=== PATIENT | female | born 1995 | race Two or more races ===

== ENCOUNTER 2024-04-24 23:51 | Emergency (ER) | payer OTHER, SELFPAY ==
[2024-04-24 23:52] VITALS: BMI 36.6
[2024-04-25 00:01] VITALS: BP 135/88; PULSE 70; RESP 19; TEMP 36.9; O2SAT 98
--- NOTE | 2024-04-25 00:07 | XR_ITS ---
Examination: PA lateral chest 2 views Technique: Upright PA lateral chest 2 views Exam date and time: April 25, 2024 at 0014 hrs. Indications: Coughing beginning one week ago Findings: Normal heart size Lungs are clear The osseous structures are intact Impression: No active disease
--- NOTE | 2024-04-25 00:07 | EDNOTE_ITS ---
Upper Respiratory Inf. RME/HPI General Chief Complaint: Flu Like Symptoms Stated Complaint: COUGH, CHEST PRESSURE Time Seen by Provider: 04/25/24 00:06 Source: patient Arrival date/time: 04/24/24 23:51 29-year-old female presents emergency department complaining of dry cough and nasal congestion that has been ongoing for several days. Patient denies any chills, fever, diarrhea, nausea vomiting, or any other associated symptom. Mode of arrival: ambulatory Limitations: no limitations Related Data Previous Rx's ?Medication ?Instructions ?Recorded albuterol sulfate 90 mcg/actuation 2 puff inhalation Q6H PRN 04/25/24 aerosol inhaler (Ventolin HFA) shortness of breath or wheezing #6.7 grams prednisone 20 mg tablet 20 mg PO BID 3 days #6 tabs 04/25/24 Allergies Allergy/AdvReac Type Severity Reaction Status Date / Time No Known Allergies Allergy Verified 04/24/24 23:52 Review of Systems Review of Systems Systems Reviewed: All systems reviewed, normal except as documented Constitutional Constitutional: Reports system reviewed and no additional complaints, except as documented, Denies body ache(s), Denies chills and Denies fever(s) Eyes Eyes: Reports system reviewed and no additional complaints, except as documented and Denies change in vision ENT Ears, Nose, Mouth, and Throat: Reports system reviewed and no additional complaints, except as documented, Denies disequilibrium, Denies dizziness, Reports nasal congestion, Denies sore throat and Denies vertigo Cardiovascular Cardiovascular: Reports system reviewed and no additional complaints, except as documented, Denies chest pain and Reports dyspnea Respiratory Respiratory: Reports system reviewed and no additional complaints, except as documented, Reports chest congestion, Reports cough and Reports dyspnea Gastrointestinal Gastrointestinal: Reports system reviewed and no additional complaints, except as documented, Denies abdominal pain, Denies nausea and Denies vomiting Musculoskeletal Musculoskeletal: Reports system reviewed and no additional complaints, except as documented, Denies abnormal gait and Denies arthralgias Integumentary/Breasts Skin/Breast: Reports system reviewed and no additional complaints, except as documented, Denies erythema, Denies rash and Denies wounds Neurologic Neurologic: Reports system reviewed and no additional complaints, except as documented, Denies abnormal gait, Denies disequilibrium, Denies dizziness and Denies vertigo Past Medical History Social History SMOKING STATUS: Never smoker ED Exam General Limitations: Present no limitations General appearance: Present alert and in no apparent distress Head Head exam: Present atraumatic Eye Eye exam: Present normal appearance, PERRL and EOMI ENT ENT exam: Present normal exam, normal oropharynx and mucous membranes moist Neck Neck exam: Present normal inspection, full ROM and trachea midline Chest Chest inspection: Present normal inspection and symmetric chest wall rise Respiratory Respiratory exam: Present normal lung sounds bilaterally Cardiovascular Cardiovascular exam: Present regular rate, normal rhythm and normal heart sounds Abdominal Exam Abdominal exam: Present soft and normal bowel sounds Extremities Exam Extremities exam: Present normal inspection and full ROM Back Exam Back exam: Present normal inspection and full ROM Neurological Exam Neurological exam: Present alert, oriented X3 and CN II-XII intact Psychiatric Psychiatric exam: Present normal affect and normal mood Skin Skin exam: Present warm, dry, intact and normal color Course Quality Measures none Orders Category Date Time Status Bedside COVID-19 Antigen Test NOW Care 04/25/24 00:07 Completed Bedside Influenza A&B Antigen Test NOW Care 04/25/24 00:07 Completed XR chest 2V Stat Exams 04/25/24 00:07 Taken Vital Signs Vital signs: Vital Signs Temperature 98.4 F 04/25/24 00:01 Pulse Rate 70 04/25/24 00:01 Respiratory Rate 19 04/25/24 00:01 Blood Pressure 135/88 H 04/25/24 00:01 Pulse Oximetry (%) 98 04/25/24 00:01 Oxygen Delivery Method Room Air 04/25/24 00:01 98% room air within normal limits Upper Respiratory Infection MDM Narrative MDM Narrative:: 29-year-old female presents emergency department complaining of dry cough and nasal congestion that has been ongoing for several days. Patient denies any chills, fever, diarrhea, nausea vomiting, or any other associated symptom. Patient appears nontoxic and hemodynamically stable. Patient 98% on room air. Influenza and COVID negative. Chest x-ray was negative for any acute process based on my interpretation. No adventitious lung sounds on auscultation. Patient does have dry cough that is nonproductive. Patient given inhaler and discharged home on oral steroids. Instructed to follow-up with primary care provider 24 to 48 hours and return to emergency department for any worsening symptoms or as needed. Patient data External records reviewed:: [facility] previous records Clinical information provided by:: patient Social determinants that could affect healthcare access:: none Patient has the following chronic illnesses:: None How is presenting disease/condition affected by chronic disease/condition?: no chronic disease Evaluation data The following diagnostics were reviewed and interpreted by me:: lab results and radiology exam(s) Lab and/or radiology exams considered but not ordered:: Ordered Interpretation Summary: Interpreted by me Medications / Prescriptions Medications or Prescriptions considered but not ordered:: Prescribed Medication administrations:: N/A Consultations Consultation(s) initiated? (list below): No Diagnosis Upper Respiratory Differential Diagnosis: upper respiratory infection, sinusitis, viral infection, bronchitis and influenza Most likely diagnosis given after review of the tests above:: Viral infection Admission Indicated Admission indicated?: not indicated Admission Request Was there a request for admission?: No Disposition Plan Disposition Plan: Discharge Discharge Attestation Discharge Attestation: The patient and all family members were given an opportunity to ask questions and understood the discharge instructions. Discharge instructions specifically effects, indications for sooner follow up or return to the emergency department, and the expected course of current diagnosis. Patient condition: Stable Discharge Plan Plan Patient Disposition: HOME (Self Care) Disposition Comment: Stable Prescriptions/Referrals Prescriptions/Med Rec: New albuterol sulfate [Ventolin HFA] 90 mcg/actuation HFA aerosol inhaler 2 puff inhalation Q6H PRN (Reason: shortness of breath or wheezing) Qty: 6.7 0RF prednisone 20 mg tablet 20 mg PO BID 3 Days Qty: 6 0RF Taper: Prednisone Taper 20 mg DAILY for 2 Days and 0 Hour 10 mg DAILY for 2 Days and 0 Hour 5 mg DAILY for 7 Days and 0 Hour Problem List Clinical Impression: Viral infection Patient/Caregiver Discharge Instructions Discharge Activity: activity as tolerated Education Materials: ED Viral Syndrome (Adult) Additional Instructions: Take medication as prescribed. Use albuterol inhaler as needed. Follow-up with primary care provider in 24 to 40 hours. Return to the emergency department for any worsening symptoms or as needed. Print Language: Uzbek Stand Alone Forms: [employer] Info., Patient Portal Info Letter PA/REPRINT SORTER Supervising Physician PA/REPRINT SORTER Supervising Physician: Dr. Bradley
== END 2024-04-25 01:16 | disposition home or self-care (01) ==
LOC: SERX 04-25 02:54
PROVIDERS: Emergency Provider Emergency Medicine
DX: B34.9 Viral infection, unspecified (principal)
CPT/HCPCS: 71046; 87400; 87811; 99283

== ENCOUNTER 2024-04-26 17:17 | Emergency (ER) | payer OTHER, SELFPAY ==
[2024-04-26 17:48] VITALS: BP 124/87; PULSE 66; RESP 18; TEMP 37; O2SAT 98; BMI 36.8
--- NOTE | 2024-04-26 18:02 | PD.EDRME ---
Rapid Medical Screening Exam RME Arrival date/time: 04/26/24 1800 29-year-old female presents emergency department complaints of nausea vomiting worsening with her cough. Has had a cough for over a week. States coughed blood. I have greeted and performed a focused initial assessment of this patient. Initial appropriate labs ordered at this time. A comprehensive ED assessment and evaluation of the patient and analysis of all test and completion of medical decision making process will be conducted by additional ED provider. Chief Complaint: Nausea/Vomiting/Diarrhea Time Seen by Provider: 04/26/24 17:54 Vital signs: Vital Signs Temperature 98.6 F 04/26/24 17:48 Pulse Rate 66 04/26/24 17:48 Respiratory Rate 18 04/26/24 17:48 Blood Pressure 124/87 H 04/26/24 17:48 Pulse Oximetry (%) 98 04/26/24 17:48 Oxygen Delivery Method Room Air 04/26/24 17:48
[2024-04-26 18:53] LABS: Basophils % (Auto) 0 % (0-2.5); Eosinophils % (Auto) 0 % (0-10); Hematocrit 42.7 % (36.0-46.0); Hemoglobin 14.2 g/dL (12.0-16.0); Immature Granulocytes % (Auto) 0 % (0-0); Immature Granulocytes Auto 0.02 Thou/mm3 (0.00-0.00); Lymphocytes # (Auto) 2.3 Thou/mm3 (1.0-4.8); Lymphocytes % (Auto) 23 % (10-50); Mean Corpuscular HGB Conc 33.3 g/dl (31.0-37.0); Mean Corpuscular Hemoglobin 30.8 pg (25.0-35.0); Mean Corpuscular Volume 93 fL (80-100); Monocytes # (Auto) 0.4 Thou/mm3 (0.0-0.8); Monocytes % (Auto) 4 % (0-12); Neutrophils # (Auto) 7.4 Thou/mm3 (1.8-7.7); Neutrophils % (Auto) 73 % (37-80); Nucleated Red Blood Cell % 0 /100 WBC (0); Platelet Count 279 Thou/mm3 (140-440); RDW Standard Deviation 40.6 fL (36.4-46.3); Red Blood Count 4.61 Miln/mm3 (4.00-5.20); White Blood Count 10.1 Thou/mm3 (3.6-11.0)
[2024-04-26 19:00] LABS: HCG,Qualitative Serum Negative
[2024-04-26 19:09] LABS: Alanine Aminotransferase 47 U/L (10-49); Albumin, Serum 4.6 gm/dL (3.5-5.0); Albumin/Globulin Ratio 1.4 (1.2-2.2); Alkaline Phosphatase 82 U/L (46-116); Anion Gap 5 (7-16); Aspartate Amino Transferase 24 U/L (0-34); BUN/Creatinine Ratio 8 Ratio (12-20); Bilirubin,Total 0.5 mg/dL (0.3-1.2); Blood Urea Nitrogen 7 mg/dL (9-23); Calcium 9.7 mg/dL (8.3-10.6); Calcium (Corrected) 9.7 mg/dL (8.5-10.1); Carbon Dioxide 25.5 mMol/L (20.0-31.0); Chloride 106 mMol/L (98-107); Creatinine (Component) 0.9 mg/dL (0.6-1.3); Estimated Creatinine Clearance 110.3 mL/min (>60); Globulin 3.2 gm/dL (2.3-3.5); Glucose 107 mg/dL (74-106); Lipase 30 U/L (12-53); Osmolality,Calculated 269 (275-295); Potassium 4.5 mMol/L (3.4-5.1); Sodium 136 mMol/L (136-145); Total Protein 7.8 gm/dL (5.7-8.2); eGFR > 60 See Note
[2024-04-26] MEDS: ONDANSETRON ODT 4 MG TABRAP PO (19:18)
[2024-04-26] MEDS: PROMETHAZINE/DM SYRUP 5 ML DOSE PO (19:21)
--- NOTE | 2024-04-26 19:45 | EDNOTE_ITS ---
Nausea/Vomit./Diarrhea-RME/HPI General Chief complaint: Nausea/Vomiting/Diarrhea Stated complaint: N/V/D x 5 days Time Seen by Provider: 04/26/24 17:54 Source: patient Arrival date/time: 04/26/24 17:17 Mode of arrival: ambulatory Limitations: no limitations RME / HPI RME / HPI Narrative: 04/26/24 1800 29-year-old female presents emergency department complaints of nausea vomiting worsening with her cough. Has had a cough for over a week. States coughed blood. I have greeted and performed a focused initial assessment of this patient. Initial appropriate labs ordered at this time. A comprehensive ED assessment and evaluation of the patient and analysis of all test and completion of medical decision making process will be conducted by additional ED provider. --- DR. HARVEY MAIN ED EVALUATION: 29-year-old female who presents to the emergency department for a chief complaint of nausea and vomiting. Patient states she's had a cough for the last 5 days, reporting it's been getting worse. She states she started having nausea and vomiting today, as well as coughing up blood, so she came in for evaluation. Denies any other associated symptoms. No known allergies. Related Data Previous Rx's ?Medication ?Instructions ?Recorded albuterol sulfate 90 mcg/actuation 2 puff inhalation Q6H PRN 04/25/24 aerosol inhaler (Ventolin HFA) shortness of breath or wheezing #6.7 grams prednisone 20 mg tablet 20 mg PO BID 3 days #6 tabs 04/25/24 promethazine-DM 6.25 mg-15 mg/5 mL 5 ml PO Q6H PRN cough #118 mL 04/26/24 oral syrup Allergies Allergy/AdvReac Type Severity Reaction Status Date / Time No Known Allergies Allergy Verified 04/24/24 23:52 Review of Systems Review of Systems Systems Reviewed: All systems reviewed, normal except as documented Past Medical History Social History SMOKING STATUS: Never smoker ED Exam General Limitations: Present no limitations General appearance: Present alert and in no apparent distress Head Head exam: Present atraumatic, normocephalic and normal inspection Eye Eye exam: Present normal appearance, PERRL and EOMI ENT ENT exam: Present normal exam, normal oropharynx, TM's normal bilaterally and normal external ear exam Neck Neck exam: Present normal inspection and full ROM Chest Chest inspection: Present normal inspection and symmetric chest wall rise Respiratory Respiratory exam: Present normal lung sounds bilaterally Cardiovascular Cardiovascular exam: Present regular rate, normal rhythm and normal heart sounds Abdominal Exam Abdominal exam: Present normal bowel sounds Extremities Exam Extremities exam: Present normal inspection and full ROM Back Exam Back exam: Present normal inspection and full ROM Neurological Exam Neurological exam: Present alert, oriented X3 and CN II-XII intact Psychiatric Psychiatric exam: Present normal affect and normal mood; Absent depressed Skin Skin exam: Present warm, dry, intact and normal color Course Quality Measures none Orders Category Date Time Status CBC Stat Lab 04/26/24 18:32 Completed CMP [Comprehensive Metabolic Panel] Stat Lab 04/26/24 18:32 Completed Cocci Serology IgM with reflex to IgG [Cocci Serology, Lab 04/26/24 18:32 Received Unk History] Stat HCG,Qualitative Serum Stat Lab 04/26/24 18:32 Completed Lipase Stat Lab 04/26/24 18:32 Completed Benzonatate [Tessalon] Med 04/26/24 22:38 Discontinued 200 mg PO X1 ONE HYDROcodone*/APAP 5/325 [[place] 5/325] Med 04/26/24 22:34 Discontinued 1 tab PO X1 ONE Ondansetron Odt [Zofran Odt] Med 04/26/24 18:01 Discontinued 4 mg PO X1 ONE Promethazine/Dextromethorph [Phenergan Dm Syrup] Med 04/26/24 18:01 Discontinued 5 ml PO X1 ONE Vital Signs Vital signs: Vital Signs Temperature 98.6 F 04/26/24 17:48 Pulse Rate 66 04/26/24 17:48 Respiratory Rate 18 04/26/24 17:48 Blood Pressure 124/87 H 04/26/24 17:48 Pulse Oximetry (%) 98 04/26/24 17:48 Oxygen Delivery Method Room Air 04/26/24 17:48 Nausea/Vomiting/Diarrhea MDM Narrative MDM Narrative:: Differential diagnoses include ? Scribe Attestation: I, Tye Mejia, am scribing for and in the presence of Dr. Catherine. Provider Notation: Although this document has been carefully reviewed, there may still be some phonetic and other typographical errors. These errors are purely grammatical due to imperfections in the software program and should not be construed in any way to compromise the substance of the patient's medical care during this visit. Patient data External records reviewed:: [facility] previous records Clinical information provided by:: patient Social determinants that could affect healthcare access:: none Patient has the following chronic illnesses:: None How is presenting disease/condition affected by chronic disease/condition?: no chronic disease Evaluation data The following diagnostics were reviewed and interpreted by me:: lab results Lab and/or radiology exams considered but not ordered:: None Interpretation Summary: See narrative Medications / Prescriptions Medications / Prescriptions considered but not ordered:: None Medication administrations:: Medication Administration History Discontinued Medications Hydrocodone Bitart/Acetaminophen (Hydrocodone/Apap 5/325 Tablet) 1 tab PO X1 ONE Stop: 04/26/24 22:35 Last Admin: 04/26/24 23:05 Dose: 1 tab Documented By: HENRIQUE Benzonatate (Benzonatate 100 Mg Capsule) 200 mg PO X1 ONE; Protocol Stop: 04/26/24 22:39 Last Admin: 04/26/24 23:08 Dose: 200 mg Documented By: HENRIQUE Ondansetron HCl (Ondansetron Odt 4 Mg Tabrap) 4 mg PO X1 ONE; Protocol Stop: 04/26/24 18:02 Last Admin: 04/26/24 19:18 Dose: 4 mg Documented By: ÁNGELA Promethazine HCl/Dextromethorphan (Promethazine/Dm Syrup 5 Ml Dose) 5 ml PO X1 ONE; Protocol Stop: 04/26/24 18:02 Last Admin: 04/26/24 19:21 Dose: 5 ml Documented By: ÁNGELA As above, if any Consultations Consultation(s) initiated? (list below): No Diagnosis Nausea Differential Diagnosis: dehydration and other (URI, Influenza, COVID, electrolyte abnormality, pneumonia) Most likely diagnosis given after review of the tests above:: see below Admission Indicated Admission indicated?: not indicated Admission Request Was there a request for admission?: No Disposition Plan Disposition Plan: Discharge Discharge Attestation Discharge Attestation: The patient and all family members were given an opportunity to ask questions and understood the discharge instructions. Discharge instructions specifically effects, indications for sooner follow up or return to the emergency department, and the expected course of current diagnosis. Patient condition: Stable Discharge Plan Plan Patient Disposition: HOME (Self Care) Patient condition on transfer: Stable Prescriptions/Referrals Prescriptions/Med Rec: New promethazine-DM 6.25-15 mg/5 mL syrup 5 ml PO Q6H PRN (Reason: cough) Qty: 118 0RF No Action albuterol sulfate [Ventolin HFA] 90 mcg/actuation HFA aerosol inhaler 2 puff inhalation Q6H PRN (Reason: shortness of breath or wheezing) Qty: 6.7 0RF prednisone 20 mg tablet 20 mg PO BID 3 Days Qty: 6 0RF Taper: Prednisone Taper 20 mg DAILY for 2 Days and 0 Hour 10 mg DAILY for 2 Days and 0 Hour 5 mg DAILY for 7 Days and 0 Hour Referrals: No Primary/Family,Physician [Primary Care Provider] - In 1 week Problem List Clinical Impression: Cough Patient/Caregiver Discharge Instructions Education Materials: ED Cough Chronic Uncertain Cause Adult Additional Instructions: Continue all your medications as your doctor prescribed. You can take the cough medicine before bed and 6 hours before going to work. Return to emergency room for worsening symptoms or any other concerns. Print Language: Turkish Stand Alone Forms: [employer] Info., Patient Portal Info Letter
[2024-04-26 19:46] VITALS: BP 115/75; PULSE 64; RESP 19; TEMP 37.1; O2SAT 97
[2024-04-26 22:52] VITALS: BP 116/77; PULSE 52; RESP 17; TEMP 36.9; O2SAT 98
[2024-04-26] MEDS: HYDROcodone/APAP 5/325 TABLET 1 TAB PO (23:05)
[2024-04-26] MEDS: BENZONATATE 100 MG CAPSULE 200 MG PO (23:08)
[2024-04-27 13:44] LABS: Cocci Serology, IgM Negative (Negative)
[2024-04-30 12:34] LABS: Cocci Serology, IgG Negative (Negative)
== END 2024-04-26 23:15 | disposition home or self-care (01) ==
PROVIDERS: Nurse Practitioner Primary Care; Emergency Provider Emergency Medicine
DX: R05.9 Cough, unspecified (principal)
CPT/HCPCS: 36415; 80053; 83690; 84703; 85025; 86331; 86635; 99283; Q0162; A9270

== ENCOUNTER 2025-03-21 13:30 | Emergency (ER) | payer OTHER, SELFPAY ==
--- NOTE | 2025-03-21 | XR_ITS ---
Exam: MRI knee without contrast, left Date and time of exam: March 21, 2025, 1509 hours INDICATIONS: Patient fell today with injury to the knee, patient felt a pop in the knee followed by pain and swelling unable to bear weight Technique: Multiple axial, coronal, and sagittal sections on the knee have been obtained. T2-Weighted sagittal, fat-suppressed images, TR 3,500, TE 62, T2 weighted coronal fat-saturated images, TR 3,500, TE 62 Proton density sagittal sections, TR 1800, TE 31. T-1 weighted coronal images, TR 524, TE 13.0 Findings: Medial meniscus anterior horn intact. Medial meniscus, body large vertical tear. Posterior horn medial meniscus very large vertical tear communicating superior-inferior articular surfaces. Lateral meniscus anterior horn is intact Lateral meniscus, body is intact Posterior horn lateral meniscus is intact Anterior cruciate ligament complete tear Posterior cruciate ligament appears intact. Knee effusion is large. Increased signal in the patellar tendon at its tibial insertion Diffuse increased signal in the quadriceps tendon. There is no evidence of tendinosis. Inflammatory change or fracture of Hoffa's fat pad is not seen. Medial patellar facet demonstrates mild thinning. Lateral patellar facet cartilage demonstrates mild thinning. Trochlear cartilage demonstrates mild thinning. Marrow signal adequate. Medial collateral ligament appears intact. Meniscocapsular separation body and posterior horn medial meniscus Illiotibial band and fibular collateral ligament are intact. Biceps femoris tendons appear intact. Medial femoral condylar articular cartilage demonstrates mild thinning. Lateral femoral condylar articular cartilage demonstrates mild thinning. Tibial plateau cartilage demonstrates mild thinning. Impression: Large tears of the body and posterior horn medial meniscus Meniscocapsular separation posterior horn medial meniscus Complete tear anterior cruciate ligament Moderate strain quadriceps tendon and patellar tendon at its tibial insertion
[2025-03-21 13:31] VITALS: BMI 35.7
[2025-03-21 13:58] VITALS: BP 106/66; PULSE 81; RESP 16; TEMP 36.8; O2SAT 98
[2025-03-21] MEDS: HYDROcodone/APAP 5/325 TABLET 1 TAB PO (14:33)
--- NOTE | 2025-03-21 16:35 | EDNOTE_ITS ---
Lower Extremity Injury RME/HPI General Chief Complaint: Extremity Injury, Lower Stated Complaint: LEFT KNEE SP FALL, NEEDS MRI Time Seen by Provider: 03/21/25 13:40 Arrival date/time: 03/21/25 13:30 30-year-old female presents to the emergency department today for complaint of left knee pain patient was evaluated yesterday and was instructed return today for MRI patient reports that she was cleaning a counter and fell off patient reports when she fell she heard a pop Limitations: no limitations Related Data Previous Rx's ?Medication ?Instructions ?Recorded albuterol sulfate 90 mcg/actuation 2 puff inhalation Q 6H PRN 04/25/24 aerosol inhaler (Ventolin HFA) shortness of breath or wheezing #6.7 grams promethazine-DM 6.25 mg-15 mg/5 mL 5 ml PO Q6H PRN cou gh #118 mL 04/26/24 oral syrup benzonatate 100 mg capsule 100 mg PO TID #14 caps 04/13 12/04 hydrocodone 5 mg-acetaminophen 325 1 tab PO BID PRN pa in #10 tabs 03/21/25 mg tablet ibuprofen 800 mg tablet 800 mg PO TID PRN pain #30 t abs 03/21/25 Allergies Allergy/AdvReac Type Severity Reaction Status Date / Time No Known Allergies Allergy Verified 03/21/25 13:33 Review of Systems Review of Systems Systems Reviewed: All systems reviewed, normal except as documented Constitutional Constitutional: Reports system reviewed and no additional complaints, except as documented, Denies fever(s) and Denies headache(s) Eyes Eyes: Reports system reviewed and no additional complaints, except as documented and Denies blurry vision ENT Ears, Nose, Mouth, and Throat: Reports system reviewed and no additional complaints, except as documented, Denies headache(s), Denies nasal congestion and Denies nasal discharge Cardiovascular Cardiovascular: Reports system reviewed and no additional complaints, except as documented, Denies chest pain and Denies dyspnea Respiratory Respiratory: Reports system reviewed and no additional complaints, except as documented, Denies chest congestion, Denies cough and Denies dyspnea Gastrointestinal Gastrointestinal: Reports system reviewed and no additional complaints, except as documented and Denies abdominal pain Integumentary/Breasts Skin/Breast: Reports system reviewed and no additional complaints, except as documented and Denies rash Neurologic Neurologic: Reports system reviewed and no additional complaints, except as documented, Reports as per HPI and Denies headache(s) Past Medical History Past Medical History CARDIAC: Negative Congestive Heart Failure RESPIRATORY: Negative Respiratory Disorders or Chronic Obstructive Pulmonary Disease (COPD) GENITOURINARY: Negative Renal Disease ENDOCRINE: Negative Diabetes Mellitus Type 1 or Diabetes Mellitus Type 2 Social History SMOKING STATUS: Never smoker ED Exam General Limitations: Present no limitations General appearance: Present alert and in no apparent distress Head Head exam: Present atraumatic Eye Eye exam: Present normal appearance, PERRL and EOMI ENT ENT exam: Present normal exam, normal oropharynx and mucous membranes moist Neck Neck exam: Present normal inspection, full ROM and trachea midline Chest Chest inspection: Present normal inspection and symmetric chest wall rise Respiratory Respiratory exam: Present normal lung sounds bilaterally Cardiovascular Cardiovascular exam: Present regular rate, normal rhythm and normal heart sounds Abdominal Exam Abdominal exam: Present soft and normal bowel sounds Extremities Exam Extremities exam: Present full ROM, tenderness, normal capillary refill and amanda int swelling (Left knee pain); Absent pedal edema or calf tenderness Back Exam Back exam: Present normal inspection and full ROM Neurological Exam Neurological exam: Present alert, oriented X3 and CN II-XII intact Psychiatric Psychiatric exam: Present normal affect and normal mood Skin Skin exam: Present warm, dry, intact and normal color Course Quality Measures none Orders Category Date Time Status MRI Screening NOW Care 03/21/25 13:41 Completed MR knee LT wo con Stat Exams 03/21/25 Completed HYDROcodone*/APAP 5/325 [[place] 5/325] Med 03/21/25 14:13 Discontinued 1 tab PO X1 ONE Vital Signs Vital signs: Vital Signs Temperature 98.3 F 03/21/25 13:58 Pulse Rate 81 03/21/25 13:58 Respiratory Rate 16 03/21/25 13:58 Blood Pressure 106/66 03/21/25 13:58 Pulse Oximetry (%) 98 03/21/25 13:58 Oxygen Delivery Method Room Air 03/21/25 13:58 O2 sat 98% r.a wnl Extremity Injury, Lower MDM Narrative MDM Narrative:: 30-year-old female presents to the emergency department today for complaint of left knee pain patient was evaluated yesterday and was instructed return today for MRI patient reports that she was cleaning a counter and fell off patient reports when she fell she heard a pop On exam patient is swelling and pain to the left knee Patient has decreased range of motion I suspect patient has ligamentous tear MRI reviewed patient has complete tear of the ACL patient placed in a knee brace I informed the patient she needs to remain nonweightbearing and she needs to follow-up PCP as soon as possible for referral for orthopedic surgeon patient will require surgery For emergent concerns patient is instructed return for evaluation Patient data External records reviewed:: [facility] previous records Clinical information provided by:: patient Social determinants that could affect healthcare access:: none Patient has the following chronic illnesses:: None How is presenting disease/condition affected by chronic disease/condition?: no chronic disease Evaluation data The following diagnostics were reviewed and interpreted by me:: radiology exam(s) Lab and/or radiology exams considered but not ordered:: Radiology obtained Interpretation Summary: Findings: Medial meniscus anterior horn intact. Medial meniscus, body large vertical tear. Posterior horn medial meniscus very large vertical tear communicating superior-inferior articular surfaces. Lateral meniscus anterior horn is intact Lateral meniscus, body is intact Posterior horn lateral meniscus is intact Anterior cruciate ligament complete tear Posterior cruciate ligament appears intact. Knee effusion is large. Increased signal in the patellar tendon at its tibial insertion Diffuse increased signal in the quadriceps tendon. There is no evidence of tendinosis. Inflammatory change or fracture of Hoffa's fat pad is not seen. Medial patellar facet demonstrates mild thinning. Lateral patellar facet cartilage demonstrates mild thinning. Trochlear cartilage demonstrates mild thinning. Marrow signal adequate. Medial collateral ligament appears intact. Meniscocapsular separation body and posterior horn medial meniscus Illiotibial band and fibular collateral ligament are intact. Biceps femoris tendons appear intact. Medial femoral condylar articular cartilage demonstrates mild thinning. Lateral femoral condylar articular cartilage demonstrates mild thinning. Tibial plateau cartilage demonstrates mild thinning. Impression: Large tears of the body and posterior horn medial meniscus Meniscocapsular separation posterior horn medial meniscus Complete tear anterior cruciate ligament Moderate strain quadriceps tendon and patellar tendon at its tibial insertion Dictated By: Tarun Paniagua MD Medications / Prescriptions Medications or Prescriptions considered but not ordered:: Given Medication administrations:: Medication Administration History Discontinued Medications Hydrocodone Bitart/Acetaminophen (Hydrocodone/Apap 5/325 Tablet) 1 tab PO X1 ONE Stop: 03/21/25 14:14 Last Admin: 03/21/25 14:33 Dose: 1 tab Documented By: Given Consultations Consultation(s) initiated? (list below): No Diagnosis Extremity Injury, Lower Differential Diagnosis: acute internal derangement of knee and other Most likely diagnosis given after review of the tests above:: Knee sprain Admission Indicated Admission indicated?: not indicated Admission Request Was there a request for admission?: No Disposition Plan Disposition Plan: Discharge Discharge Attestation Discharge Attestation: The patient and all family members were given an opportunity to ask questions and understood the discharge instructions. Discharge instructions specifically effects, indications for sooner follow up or return to the emergency department, and the expected course of current diagnosis. Patient condition: Stable Discharge Plan Plan Patient Disposition: HOME (Self Care) Discharge Disposition comment: Stable Prescriptions/Referrals Prescriptions/Med Rec: New ibuprofen 800 mg tablet 800 mg PO TID PRN (Reason: pain) Qty: 30 0RF hydrocodone-acetaminophen 5-325 mg tablet 1 tab PO BID MDD 10 PRN (Reason: pain) Qty: 10 0RF No Action albuterol sulfate [Ventolin HFA] 90 mcg/actuation HFA aerosol inhaler 2 puff inhalation Q6H PRN (Reason: shortness of breath or wheezing) Qty: 6.7 0RF promethazine-DM 6.25-15 mg/5 mL syrup 5 ml PO Q6H PRN (Reason: cough) Qty: 118 0RF benzonatate 100 mg capsule 100 mg PO TID Qty: 14 0RF Referrals: No Primary/Family,Physician [Referring Provider] - 03/22/25 Problem List Clinical Impression: Anterior cruciate ligament complete tear Patient/Caregiver Discharge Instructions Education Materials: ED Knee Sprain Additional Instructions: Please follow up with your primary care doctor in the next 24-48hrs for any worsening symptoms return here immediately Print Language: [place] Stand Alone Forms: Little Award Info., Work/School Release, Patient Portal Info Letter PA/PEPPER PICKER Supervising Physician PA/PEPPER PICKER Supervising Physician: Dr. feliciano
== END 2025-03-21 17:08 | disposition home or self-care (01) ==
PROVIDERS: Emergency Provider Nurse Practitioner Primary Care; PCP Internal Medicine
DX: S83.512A Sprain of anterior cruciate ligament of left knee, initial encounter (principal); S83.242A Other tear of medial meniscus, current injury, left knee, initial encounter; S76.112A Strain of left quadriceps muscle, fascia and tendon, initial encounter; W17.89XA Other fall from one level to another, initial encounter; Y93.E9 Activity, other interior property and clothing maintenance
CPT/HCPCS: 73721; 99283; A9270